=== PATIENT | female | born 1990 | race Caucasian/White ===

== ENCOUNTER 2018-07-10 13:59 | Emergency (ER) | payer OTHER ==
[~2018-07-10] VITALS: Ht 160 cm; Wt 85.7 kg
[~2018-07-10 13:59] MED LIST: AMOX500 PO; Adult Low Dose81 MG PO; DIPH25 PO; ERGO400 PO; FAMO40 PO; LORPSEER12; RANI150 PO
[2018-07-10 15:01] LABS: Source, Urine Clean Catch
[2018-07-10 15:11] LABS: Appearance, Urine Hazy (Clear); Bilirubin, Urine Neg (Neg); Blood, Urine Neg (Neg); Color, Urine Yellow (P-Yellow); Glucose Qualitative, Urine Neg (Neg); Ketones, Urine Neg (Neg); Leukocyte Esterase, Urine 3+ (Neg); Nitrite, Urine Neg (Neg); Protein, Urine Neg (Neg); Urobilinogen, Urine NORM (Normal); pH, Urine 6.5 (5.0-8.0)
[2018-07-10 15:16] LABS: BASOPHILS ABSOLUTE AUTO 0.01 K/mm3 (0.00-0.23); BASOPHILS PERCENT AUTO 0 % (0-2); EOSINOPHILS ABSOLUTE AUTO 0.04 K/mm3 (0.00-0.68); EOSINOPHILS PERCENT AUTO 1 % (0-6); Hematocrit 40.4 % (33.0-51.0); Hemoglobin 12.8 g/dL (11.5-16.0); IMMATURE GRAN ABSOLUTE AUTO 0.03 K/mm3 (0.00-0.10); IMMATURE GRAN PERCENT AUTO 1 % (0-1); LYMPHOCYTES ABSOLUTE AUTO 1.83 K/mm3 (0.84-5.20); LYMPHOCYTES PERCENT AUTO 28 % (21-46); MONOCYTES ABSOLUTE AUTO 0.46 K/mm3 (0.16-1.47); MONOCYTES PERCENT AUTO 7 % (4-13); Mean Corpuscular HGB 27.9 pg (26.0-34.0); Mean Corpuscular HGB Conc 31.7 g/dL (31.5-36.5); Mean Corpuscular Volume 88 fL (80-100); Mean Platelet Volume 9.3 fL (9.1-12.4); NEUTROPHILS ABSOLUTE AUTO 4.28 K/mm3 (1.96-9.15); NEUTROPHILS PERCENT AUTO 64 % (41-73); Platelet Count 251 K/mm3 (150-400); RDW Coefficient Variation 13.2 % (11.7-14.2); RDW Standard Deviation 42.4 fL (35.1-46.3); Red Blood Cell Count 4.59 M/mm3 (3.80-5.20); White Blood Cell Count 6.65 K/mm3 (4.00-11.30)
[2018-07-10 15:20] LABS: Red Blood Cells, Urine 0-2 /hpf (0-2)
[2018-07-10 15:21] LABS: Bacteria Not Seen /hpf; Squamous Epithelial Cells Few /hpf (Few)
[2018-07-10 15:26] LABS: Alanine Aminotransfer (ALT/SGP 34 U/L (12-78); Albumin, Blood 3.4 g/dL (3.4-5.0); Albumin/Globulin Ratio 0.8 (0.8-1.8); Alk Phos 51 U/L (50-136); Anion Gap 2 mmol/L (6-16); Aspartate Aminotrans (AST/SGOT 24 U/L (12-37); Bilirubin, Total 0.5 mg/dL (0.1-1.0); Blood Urea Nitrogen 13 mg/dL (8-24); CO2, Blood 29 mmol/L (21-32); Calcium, Blood 8.8 mg/dL (8.5-10.1); Chloride, Blood 107 mmol/L (98-108); Creatinine, Blood 0.93 mg/dL (0.40-1.00); Ethanol (Alcohol), Blood, Med <3 mg/dL; Free Thyroxine 1.25 ng/dL (0.70-1.60); Globulin, Blood 4.2 g/dL (2.2-4.0); Glomerular Filtration Rate >60 (60-); Glucose, Blood 88 mg/dL (70-99); Potassium, Blood 3.8 mmol/L (3.5-5.5); Salicylate <1.7 mg/dL (2.8-20.0); Sodium, Blood 138 mmol/L (136-145); Total Protein, Blood 7.6 g/dL (6.4-8.2)
[2018-07-10 15:34] LABS: Acetaminophen, Random <2.0 ug/mL (10.0-30.0)
[2018-07-10 16:42] LABS: U Amphetamine Screen Not Detected; U Barbituate Screen Not Detected; U Benzodiazapine Screen Not Detected; U Buprenorphine Screen Not Detected; U Cannabinoids Screen DETECTED; U Cocaine Screen Not Detected; U Methadone Screen Not Detected; U Methamphetamine Screen Not Detected; U Opiates Screen Not Detected; U Oxycodone Screen Not Detected; U Phencyclidine Screen Not Detected; U Propoxyphene Screen Not Detected
[2018-07-10] MEDS ORDERED: Zoloft25 MG PO (18:49)
== END 2018-07-10 19:05 | disposition home or self-care (01) ==
LOC: ER 13:59
PROVIDERS: Emergency Medicine
DX: F43.10 Post-traumatic stress disorder, unspecified (principal); F60.3 Borderline personality disorder; F32.9 Major depressive disorder, single episode, unspecified
CPT/HCPCS: 36415; 80053; 81001; 81025; 84439; 84443; 85025; 87086; 90471; 90714; 99284-25; G0480; Q3014

== ENCOUNTER → 2018-10-07 | Outpatient (CLI) | payer OTHER ==
[~2018-10-07] MED LIST changes: +SERT50 PO; +Zoloft25 MG PO
[2018-10-09 15:07] LABS: HPV 16 Negative (Negative); HPV 18 Negative (Negative); HPV OTHER HR TYPES Positive (Negative)
== END ==
LOC: LAB SHORT 19:31 → LAB 19:31
PROVIDERS: Registered Nurse Community Health
DX: Z12.4 Encounter for screening for malignant neoplasm of cervix (principal)
CPT/HCPCS: 87624; 87625; G0123

== ENCOUNTER → 2019-01-27 | Outpatient (CLI) | payer OTHER | END | disposition home or self-care (01) | LOC: LAB 11:50 → LAB SHORT 11:50 | DX: Z51.81 Encounter for therapeutic drug level monitoring (principal); Z79.899 Other long term (current) drug therapy | CPT/HCPCS: 81025 ==

== ENCOUNTER → 2020-11-15 | Outpatient (CLI) | payer OTHER ==
[2020-11-16 11:02] LABS: Candida species (DNA Probe) Negative (NEGATIVE); G. vaginalis (DNA Probe) Negative (NEGATIVE); T. vaginalis (DNA Probe) Negative (NEGATIVE)
[2020-11-16 13:11] LABS: HPV 16 Negative (Negative); HPV 18 Negative (Negative); HPV OTHER HR TYPES Positive (Negative)
== END ==
LOC: LAB 09:20 → LAB SHORT 09:20
PROVIDERS: Registered Nurse Community Health
DX: Z12.4 Encounter for screening for malignant neoplasm of cervix (principal); N89.8 Other specified noninflammatory disorders of vagina
CPT/HCPCS: 87480; 87510; 87624; 87660; G0123

== ENCOUNTER → 2023-10-15 | Outpatient (CLI) | payer MEDICAID ==
[~2023-10-15] MED LIST changes: +CEPH500 PO
[2023-10-15 16:12] LABS: Source, Urine Clean Catch
[2023-10-15 17:08] LABS: Appearance, Urine Clear (Clear); Bilirubin, Urine Neg (Neg); Blood, Urine Neg (Neg); Color, Urine Yellow (P-Yellow); Glucose Qualitative, Urine Neg (Neg); Ketones, Urine Neg (Neg); Leukocyte Esterase, Urine 3+ (Neg); Nitrite, Urine Neg (Neg); Protein, Urine 1+ (Neg); Specific Gravity, Urine 1.015 (1.003-1.022); Urobilinogen, Urine NORM (Normal)
[2023-10-15 17:20] LABS: Red Blood Cells, Urine 0-2 /hpf (0-2)
[2023-10-15 17:21] LABS: Bacteria Many /hpf; Squamous Epithelial Cells Few /hpf (Few)
[2023-10-15 17:27] LABS: BASOPHILS ABSOLUTE AUTO 0.05 K/mm3 (0.00-0.23); BASOPHILS PERCENT AUTO 0 % (0-2); EOSINOPHILS ABSOLUTE AUTO 0.12 K/mm3 (0.00-0.68); EOSINOPHILS PERCENT AUTO 1 % (0-6); Hematocrit 37.7 % (33.0-51.0); Hemoglobin 12.8 g/dL (11.5-16.0); IMMATURE GRAN ABSOLUTE AUTO 0.22 K/mm3 (0.00-0.10); IMMATURE GRAN PERCENT AUTO 2 % (0-1); LYMPHOCYTES ABSOLUTE AUTO 2.62 K/mm3 (0.84-5.20); LYMPHOCYTES PERCENT AUTO 21 % (21-46); MONOCYTES ABSOLUTE AUTO 0.84 K/mm3 (0.16-1.47); MONOCYTES PERCENT AUTO 7 % (4-13); Mean Corpuscular HGB 29.2 pg (26.0-34.0); Mean Corpuscular Volume 86 fL (80-100); Mean Platelet Volume 11.1 fL (9.1-12.4); NEUTROPHILS ABSOLUTE AUTO 8.46 K/mm3 (1.96-9.15); NEUTROPHILS PERCENT AUTO 69 % (41-73); Platelet Count 259 K/mm3 (150-400); RDW Coefficient Variation 12.9 % (11.7-14.2); RDW Standard Deviation 40.3 fL (35.1-46.3); Red Blood Cell Count 4.39 M/mm3 (3.80-5.20); White Blood Cell Count 12.31 K/mm3 (4.00-11.30)
[2023-10-17 07:32] LABS: HIV 1,2 COMBO ANTIGEN/ANTIBODY Negative (Negative)
[2023-10-17 09:53] LABS: HEPATITIS C AB CIA INTERP Negative (Negative); HEPATITIS C ANTIBODY CIA INDEX 0.09 IV
[2023-10-17 19:07] LABS: HEPATITIS B SURFACE ANTIGEN Negative (Negative)
[2023-10-18 19:56] LABS: APTIMA MEDIA TYPE Urine; C. TRACHOMATIS BY TMA Negative (Negative); N. GONORRHOEAE BY TMA Negative (Negative); SPECIMEN SOURCE Urine; T. VAGINALIS BY TMA Negative (Negative)
== END | disposition home or self-care (01) ==
LOC: LAB SHORT 13:30
PROVIDERS: Family Medicine
DX: Z34.91 Encounter for supervision of normal pregnancy, unspecified, first trimester (principal); Z86.32 Personal history of gestational diabetes
CPT/HCPCS: 81001; 83036; 84443; 86803; 87081; 87086; 87150; 87340; 87389

== ENCOUNTER 2023-11-04 09:13 | Inpatient (IN) | payer OTHER ==
[~2023-11-04] VITALS: Ht 160 cm; Wt 90.9 kg
[2023-11-04] VITALS (23 sets, daily range): BP systolic 84–162; BP diastolic 57–90
[2023-11-04] MEDS ORDERED: Citric Acid/Sodium Citrate 30 ML BTL PO SCH (09:30)
[2023-11-04] MEDS ORDERED: CeFAZolin Sodium 2,000 MG in NS 100 ML IV SCH (09:30)
[2023-11-04] MEDS ORDERED: Metoclopramide HCl 5MG / ML 2ML Vial IV ONE (09:30)
[2023-11-04] MEDS ORDERED: Lactated Ringer's 1,000 ML IV SCH ×2 (09:30)
[2023-11-04 09:43] LABS: BASOPHILS ABSOLUTE AUTO 0.04 K/mm3 (0.00-0.23); BASOPHILS PERCENT AUTO 0 % (0-2); EOSINOPHILS ABSOLUTE AUTO 0.08 K/mm3 (0.00-0.68); EOSINOPHILS PERCENT AUTO 1 % (0-6); Hematocrit 39.1 % (33.0-51.0); Hemoglobin 13.6 g/dL (11.5-16.0); IMMATURE GRAN ABSOLUTE AUTO 0.16 K/mm3 (0.00-0.10); IMMATURE GRAN PERCENT AUTO 1 % (0-1); LYMPHOCYTES ABSOLUTE AUTO 2.77 K/mm3 (0.84-5.20); LYMPHOCYTES PERCENT AUTO 23 % (21-46); MONOCYTES ABSOLUTE AUTO 0.59 K/mm3 (0.16-1.47); MONOCYTES PERCENT AUTO 5 % (4-13); Mean Corpuscular HGB 29.2 pg (26.0-34.0); Mean Corpuscular HGB Conc 34.8 g/dL (31.5-36.5); Mean Corpuscular Volume 84 fL (80-100); Mean Platelet Volume 10.8 fL (9.1-12.4); NEUTROPHILS PERCENT AUTO 70 % (41-73); Platelet Count 242 K/mm3 (150-400); RDW Coefficient Variation 13.2 % (11.7-14.2); RDW Standard Deviation 39.8 fL (35.1-46.3); Red Blood Cell Count 4.66 M/mm3 (3.80-5.20); White Blood Cell Count 12.24 K/mm3 (4.00-11.30)
[2023-11-04] MEDS ORDERED: ENOX40I SC (09:46)
[2023-11-04 10:22] LABS: Albumin, Blood 2.4 g/dL (3.4-5.0); Albumin/Globulin Ratio 0.5 (0.8-1.8); Bilirubin, Total 0.3 mg/dL (0.1-1.0); Bun/Creatinine Ratio 14.4 (12.0-20.0); Calcium, Blood 8.7 mg/dL (8.5-10.1); Creatinine, Blood 0.56 mg/dL (0.40-1.00); Globulin, Blood 4.8 g/dL (2.2-4.0); Total Protein, Blood 7.2 g/dL (6.4-8.2)
--- NOTE | 2023-11-04 10:56 | NUR ---
PT IS ACTING VERY WITHDRAWN WITH A FLAT AFFECT. PT'S AUNT BETZY JOHNSON AND HEATHER HAWKINS ASKED TO STEP OUT OF ROOM TO SPEAK TO PT AFTER PT BECAME TEARFUL AND STATED "IM NOT OK RIGHT NOW". PT STATES SHE HAS A VIOLENT PERSONALITY IN HER HEAD" THAT SHE HAS A PERSONALITY DISORDER. ALSO STATED SHE DIDN'T KNOW IF " DEPRESSION" STARTS ALREADY. SHE STATES, "I AM NOT IN MY RIGHT MIND AT THE MOMENT". ALSO STATES, "I AM A THINKER AND NOT A DOER. I WONT' RIP OUT MY IV". STATES SHE HAD NOT LOOKED AT ULTRASOUNDS OF BABY BECAUSE SHE DOESN'T HAVE, "MOTHER INSTINCTS". STATES, "I WOULD NEVER DO ANYTHING TO HURT THE BABY, JUST MYSELF AFTER BABY IS BORN". STATES, "I KNOW THE BABY HAS SPECIFIC NEEDS AND NEEDS TO BE TAKEN CARE OF, I JUST DON'T THINK I HAVE THAT". PT STATES HER AUNT BETZY JOHNSON AND HEATHER HAWKINS ARE GREAT SUPPORT BUT WAS NOT HAPPY OTHERS CAME IN TO VISIT BEFORE PROCEDURE. PT ALSO STATES SHE HAS NEVER STAYED ON MOOD STABILIZING MEDICATION BECAUSE IS MAKES HER CROSS OVER FROM THINKING ABOUT THINGS TO HURT/KILL HERSELF AND MAKES HER "START PLANNING AND TAKE ACTION". PT ALSO STATES SHE WOULD LIKE MOOD STABILIZING MEDICATION WHILE IN THE HOSPITAL IF POSSIBLE, "USUALLY SMOKING MARIJUANA HELPS". SHE STATES, "I DON'T KNOW WHAT I'M FEELING BUT I KNOW IM NOT OK". PROVIDER CALLED.
--- NOTE | 2023-11-04 11:28 | NUR ---
LATE NOTE ENTRY: DR. JOHNSON SEEN IN [facility] AND VERBALLY NOTIFIED OF PT'S UNSTABLE MOOD AND SUICIDAL IDEATION . DR. JOHNSON GAVE VERBAL ORDER TO HAVE PT A 1:1 SUICIDE WATCH SITTER, CARE MANAGEMENT CONSULT ORDER AND PSYCHIATRY CONSULT ORDER. CHARGE DIEGO HERNANDEZ CALLED [employer] AND NOTIFIED OF ABOVE INFORMATION.
--- NOTE | 2023-11-04 11:39 | NUR ---
11/04/[address] Whaley notified that a psych evaluation has been ordered; will come this afternoon around 1500 for evaluation
--- NOTE | 2023-11-04 11:40 | NUR ---
11/04/23 1135 Mago from [employer] social [employer] notifed of need for consult; will come to see patient after the psych evaluation is completed by Dr Whaley
[2023-11-04] MEDS ORDERED: Bupivacaine 0.75%/Dext 8.25% 2 ML Amp IT ONE (12:14)
[2023-11-04] MEDS ORDERED: ePHEDrine Sulfate 50 MG/ML 1ML Injection ONE (12:31)
[2023-11-04] MEDS ORDERED: Oxytocin 10 Unit / ML Vial ONE (12:44)
--- NOTE | 2023-11-04 12:51 | NUR ---
11/04/23 1251 Aditi Castle VIABLE FEMALE BORN AT 1244 WITH SPONTANTOUS CRY AFTER STIMULATION. . CORD BLOOD GIVEN TO CHRIS CORTEZ AND CORD GASES GIVEN TO LULÚ CARSON. WEIGHT 9-1 ([id number])
[2023-11-04 13:02] LABS: PCO2 Cord - Arterial 74.8 mmHg (40-50); PO2 Cord - Arterial < 14.0 mmHg (16-20); pH Cord - Arterial 7.17 (7.28-7.35)
[2023-11-04 13:05] LABS: PCO2 Cord - Venous 63.8 mmHg (40-50); PO2 Cord - Venous < 14.0 mmHg (28-32); pH Umbilical Cord - Venous 7.23 (7.26-7.35)
[2023-11-04] MEDS ORDERED: Ondansetron HCl 2 MG / ML 2ML Vial IV PRN (13:05)
[2023-11-04] MEDS ORDERED: FentaNYL Citrate 50 MCG/ML 2 ML Injection IV PRN ×2 (13:05→13:10)
[2023-11-04] MEDS ORDERED: Morphine Sulfate 4 MG/1 ML Injection IV PRN (13:05)
[2023-11-04] MEDS ORDERED: Albuterol 2.5 MG/3 ML VIAL INH PRN (13:05)
[2023-11-04] MEDS ORDERED: HYDROmorphone HCl/Pf 1MG SYR IV PRN (13:05)
[2023-11-04] MEDS ORDERED: Metoclopramide HCl 10 MG Tab PO PRN (14:00)
[2023-11-04] MEDS ORDERED: Magnesium Hydroxide Conc 10 ML UDC PO PRN (14:00)
[2023-11-04] MEDS ORDERED: OxyCODONE 5 mg/Acetamin 325 mg TABLET PO PRN (14:05)
[2023-11-04] MEDS ORDERED: OxyCODONE HCL 5 MG TAB PO PRN (14:05)
[2023-11-04] MEDS ORDERED: Acetaminophen 500 MG Tab PO PRN (14:05)
[2023-11-04] MEDS ORDERED: Lanolin Cream TOP PRN (14:05)
[2023-11-04] MEDS ORDERED: HydrOXYzine Pamoate 25 MG Cap PO PRN (14:10)
[2023-11-04] MEDS ORDERED: Simethicone 80 MG Chew PO PRN (14:10)
[2023-11-04] MEDS ORDERED: Ketorolac Tromethamine 30mg Vial IV SCH (15:00)
[2023-11-04] MEDS ORDERED: Ibuprofen 400 MG Tab PO SCH (16:00)
--- NOTE | 2023-11-04 16:25 | NUR ---
CONSULT WITH DR. BRIZUELA WENT WELL. PT VERY OPEN AND HONEST WITH HISTORY OF EVENTS IN HER LIFE, COUNSELING AND MEDICATIONS TRIED/WHEN. OPEN AND HONEST WITH THOUGHTS OF HARM. WHEN DR. BRIZUELA ASKED IF HE NEEDED TO BE WORRIED OF PT HURTING OR KILLING HERSELF RIGHT NOW, PT STATED NO. PT DOESN'T APPEAR TO BE WITHDRAWN OR FLAT AFFECT. VERY PLEASANT AND RESPECTFUL CONVERSATION WITH THIS RN AT BEDSIDE.
[2023-11-04] MEDS ORDERED: Docusate Sodium 100 MG Cap PO SCH (21:00)
[2023-11-04] MEDS ORDERED: Sennosides 8.6 MG Tab PO SCH (21:00)
[2023-11-05] VITALS (7 sets, daily range): BP systolic 126–140; BP diastolic 73–83
[2023-11-05] MEDS ORDERED: Enoxaparin 40 MG/0.4 ML SYR SC SCH (02:00)
[2023-11-05 05:57] LABS: BASOPHILS ABSOLUTE AUTO 0.02 K/mm3 (0.00-0.23); BASOPHILS PERCENT AUTO 0 % (0-2); EOSINOPHILS ABSOLUTE AUTO 0.06 K/mm3 (0.00-0.68); EOSINOPHILS PERCENT AUTO 1 % (0-6); Hematocrit 34.1 % (33.0-51.0); Hemoglobin 11.6 g/dL (11.5-16.0); IMMATURE GRAN ABSOLUTE AUTO 0.11 K/mm3 (0.00-0.10); IMMATURE GRAN PERCENT AUTO 1 % (0-1); LYMPHOCYTES PERCENT AUTO 15 % (21-46); MONOCYTES ABSOLUTE AUTO 0.95 K/mm3 (0.16-1.47); MONOCYTES PERCENT AUTO 7 % (4-13); Mean Corpuscular HGB 28.7 pg (26.0-34.0); Mean Corpuscular Volume 84 fL (80-100); Mean Platelet Volume 10.4 fL (9.1-12.4); NEUTROPHILS PERCENT AUTO 76 % (41-73); Platelet Count 210 K/mm3 (150-400); RDW Coefficient Variation 13.2 % (11.7-14.2); RDW Standard Deviation 40.5 fL (35.1-46.3); Red Blood Cell Count 4.04 M/mm3 (3.80-5.20); White Blood Cell Count 13.04 K/mm3 (4.00-11.30)
[2023-11-05] MEDS ORDERED: Prenatal Vit/FE Fumarate/FA 1 Tab PO SCH (09:00)
--- NOTE | 2023-11-05 15:00 | NUR ---
per tha in casemanagement, not to do depression assessment, due to pt being suicidial 8-19 she will score high. she has been cleared by a psych doctor dr dominguez and has spoken with jewel oliveros, and tha in casemanagement.
--- NOTE | 2023-11-05 17:47 | NUR ---
agree with above assessment
--- NOTE | 2023-11-05 23:11 | NUR ---
PT LOOKING BLANKLY AT WALL. THIS RN ASKED WHAT PT WAS FEELING. PT STATED "IM FEELING NUMB AND WITHDRAWN". PT DENIED ANY FEELING OF HURTING SELF OR OTHERS, OR ANY VOICES. PT STATED "MY SISTER IS TRYING TO GET A RESTRAINING ORDER AGAINST ME". RN REINSTATED THAT PT SHOULD LET THIS RN KNOW OF ANY THOUGHTS OF HURTING SELF OR OTHERS OR ANY VOICES IN HEAD.
[2023-11-06] MEDS ORDERED: QUEtiapine Fumarate 100 MG Tab PO SCH (00:32)
--- NOTE | 2023-11-06 00:42 | NUR ---
PT CALLED RN TO ROOM " WILL YOU TAKE BABY, I DONT WANT HER IN HER RIGHT NOW. I'M JUST UPSET BUT I DONT WANT HER TO BE AROUND THAT". PT DENIES ANY THOUGHTS OF SELF HARM, SI, HURTING OTHERS OR ANY VOICES. PT STATED SHE IS OPEN TO MEDICATION FOR ANXIETY. RN NOTIFIED DR. JOHNSON OF THIS AND TELEPHONE ORDER RECIEVED. INFANT BROUGHT TO NURSES STATION.
[2023-11-06 05:03] VITALS: BP 109/60
--- NOTE | 2023-11-06 06:05 | NUR ---
WHEN RN ENTERED ROOM, PT ASLEEP WITH INFANT IN ARMS IN BED. THIS RN EDUCATED PT ABOUT SAFE SLEEP PRACTICES. PT VERBALIZED UNDERSTANDING.
[2023-11-06 06:41] LABS: Albumin, Blood 1.9 g/dL (3.4-5.0); Albumin/Globulin Ratio 0.5 (0.8-1.8); Bilirubin, Total 0.2 mg/dL (0.1-1.0); Bun/Creatinine Ratio 16.7 (12.0-20.0); Calcium, Blood 8.4 mg/dL (8.5-10.1); Creatinine, Blood 0.54 mg/dL (0.40-1.00); Globulin, Blood 3.8 g/dL (2.2-4.0); Potassium, Blood 3.8 mmol/L (3.5-5.5); Total Protein, Blood 5.7 g/dL (6.4-8.2)
[2023-11-06 08:39] VITALS: BP 121/69
[2023-11-06 11:19] VITALS: BP 130/86
[2023-11-06] MEDS ORDERED: DOCU100 PO (12:53)
[2023-11-06] MEDS ORDERED: IBUP800 PO (12:53)
[2023-11-06] MEDS ORDERED: Percocet 5-3251 EACH PO (12:53)
--- NOTE | 2023-11-06 13:54 | NUR ---
DISCHARGED HOMW WITH NB, PT AUNT ELIZABETH IN ACCOMPANY WITH HER AND NB
== END 2023-11-06 13:45 | disposition home or self-care (01) | DRG 787 ==
LOC: BC 09:13
PROVIDERS: ADMIT Family Medicine
PROC: 10D00Z1 Extraction of Products of Conception, Low, Open Approach (ICD-10-PCS; principal; 2023-11-04 11:30)
DX: O34.211 Maternal care for low transverse scar from previous cesarean delivery (principal); D68.51 Activated protein C resistance; O99.12 Other diseases of the blood and blood-forming organs and certain disorders involving the immune mechanism complicating childbirth; O99.324 Drug use complicating childbirth; Z59.00 Homelessness unspecified; E72.12 Methylenetetrahydrofolate reductase deficiency; Z3A.39 39 weeks gestation of pregnancy; Z37.0 Single live birth; F12.90 Cannabis use, unspecified, uncomplicated; O99.334 Smoking (tobacco) complicating childbirth; F17.210 Nicotine dependence, cigarettes, uncomplicated; O99.344 Other mental disorders complicating childbirth; F32.A Depression, unspecified; Z91.011 Allergy to milk products; Z79.899 Other long term (current) drug therapy; O99.284 Endocrine, nutritional and metabolic diseases complicating childbirth; Z71.6 Tobacco abuse counseling; Z71.51 Drug abuse counseling and surveillance of drug abuser
CPT/HCPCS: 36415; 80053; 82803; 82947; 83735; 85025; 86850; 86900; 86901; 86923; A9270; J0690; J1650; J1885; J2590; J2765; J7120; Q0177

== ENCOUNTER → 2024-01-14 | Outpatient (CLI) | payer OTHER ==
[~2024-01-14] MED LIST changes: +DOCU100 PO; +ENOX40I SC; +IBUP800 PO; +Percocet 5-3251 EACH PO
[2024-01-14 12:00] LABS: Albumin, Blood 3.4 g/dL (3.4-5.0); Albumin/Globulin Ratio 0.8 (0.8-1.8); Bilirubin, Total 0.3 mg/dL (0.1-1.0); Bun/Creatinine Ratio 17.4 (12.0-20.0); Calcium, Blood 8.9 mg/dL (8.5-10.1); Creatinine, Blood 0.92 mg/dL (0.40-1.00); Globulin, Blood 4.1 g/dL (2.2-4.0); Thyroid Stimulating Hormone 2.654 uIU/mL (0.360-4.800); Total Protein, Blood 7.5 g/dL (6.4-8.2)
[2024-01-14 13:01] LABS: BASOPHILS ABSOLUTE AUTO 0.01 K/mm3 (0.00-0.23); BASOPHILS PERCENT AUTO 0 % (0-2); EOSINOPHILS PERCENT AUTO 1 % (0-6); Hematocrit 42.5 % (33.0-51.0); Hemoglobin 13.9 g/dL (11.5-16.0); IMMATURE GRAN ABSOLUTE AUTO 0.03 K/mm3 (0.00-0.10); IMMATURE GRAN PERCENT AUTO 0 % (0-1); LYMPHOCYTES ABSOLUTE AUTO 2.53 K/mm3 (0.84-5.20); LYMPHOCYTES PERCENT AUTO 34 % (21-46); MONOCYTES ABSOLUTE AUTO 0.45 K/mm3 (0.16-1.47); MONOCYTES PERCENT AUTO 6 % (4-13); Mean Corpuscular HGB 27.9 pg (26.0-34.0); Mean Corpuscular HGB Conc 32.7 g/dL (31.5-36.5); Mean Corpuscular Volume 85 fL (80-100); NEUTROPHILS ABSOLUTE AUTO 4.35 K/mm3 (1.96-9.15); NEUTROPHILS PERCENT AUTO 58 % (41-73); Platelet Count 308 K/mm3 (150-400); RDW Coefficient Variation 13.6 % (11.7-14.2); RDW Standard Deviation 42.5 fL (35.1-46.3); Red Blood Cell Count 4.98 M/mm3 (3.80-5.20); White Blood Cell Count 7.47 K/mm3 (4.00-11.30)
== END | disposition home or self-care (01) ==
LOC: LAB SHORT 11:36 → LAB 11:36
PROVIDERS: Family Medicine
DX: N92.1 Excessive and frequent menstruation with irregular cycle (principal); R00.0 Tachycardia, unspecified; R53.83 Other fatigue; R73.9 Hyperglycemia, unspecified
CPT/HCPCS: 80053; 83036; 84443; 85025